=== PATIENT | male | born 1975 | race Caucasian/White ===

== ENCOUNTER → 2023-09-11 | Outpatient (CLI) | payer SELFPAY ==
[2023-09-11 12:11] LABS: Absolute Lymphocyte Count 2.08 X10^3/uL (0.83-4.51); Absolute Neutrophil Count 4.1 X10^3/uL (2.0-7.7); Basophil# 0.08 X10^3/uL; Basophil% 1.2 % (0-1); Eosinophil# 0.17 X10^3/uL; Eosinophils% 2.5 % (0-5); Hematocrit 42.7 % (40-54); Hemoglobin 14.1 g/dL (13.0-16.5); Lymphocyte # 2.08 X10^3/ul (0.83-4.51); Lymphocyte % 30.1 % (19-41); Mean Corpuscular Volume 93.8 fL (80-94); Mean Platelet Vol. 11.1 fl (6.2-12.0); Monocyte# 0.51 X10^3/uL; Monocyte% 7.4 % (0-10); NRBC Flagged by Analyzer 0 % (0-5); Neutrophil # 4.06 X10^3/uL (2.7-7.7); Neutrophil % 58.7 % (47-70); Platelet Count 296 K/mm3 (150-450); RBC Distribution Width CV 12.4 % (11.6-14.6); RBC Distribution Width SD 42.5 fl (35.1-43.9); Red Blood Count 4.55 M/mm3 (4.6-6.2); White Blood Count 6.9 K/mm3 (4.4-11.0)
[2023-09-11 12:41] LABS: AST(SGOT) 24 U/L (15-37); Alanine Aminotransfer ALT/SGPT 31 U/L (16-61); Albumin, Serum 3.8 g/dL (3.2-5.0); Alkaline Phosphatase 58 U/L (45-117); Anion Gap 6 (5-15); BUN 21 mg/dL (7-18); BUN/Creat Ratio 20.8 RATIO (10-20); Calcium,Total 9.1 mg/dL (8.5-10.1); Chloride 107 mmol/L (98-107); Cholesterol 175 mg/dL (200); Creatinine, Serum 1.01 mg/dL (0.70-1.30); EST Glomerular Filtration Rate 84 mL/min (>60); Est Glom Filt Rate - Afr Amer 101 mL/min (>60); Globulin 3.8 g/dL (2.2-4.2); Glucose 89 mg/dL (74-106); High Density Lipoprotein 39 mg/dL; PSA,Total - Annual Screen 6.68 ng/mL (0.00-4.00); Potassium 4.2 mmol/L (3.5-5.1); Protein, Total 7.6 g/dL (6.4-8.2); Sodium Level 137 mmol/L (136-145); Triglycerides 80 mg/dL; Very Low Density Lipoprotein 16 mg/dL (5-40)
== END | disposition home or self-care (01) ==
LOC: BFHLAB 10:56
PROVIDERS: PCP Nurse Practitioner Family; Visit Provider Nurse Practitioner Family
DX: Z00.01 Encounter for general adult medical examination with abnormal findings (principal)
CPT/HCPCS: 36415; 80053; 80061; 84153; 85025; G0103

== ENCOUNTER → 2023-11-27 | Outpatient (CLI) | payer BC, SELFPAY ==
[2023-11-27 18:11] LABS: PSA,Total- Diagnostic 7.29 ng/mL (0.0-4.0)
[2023-11-29 11:08] LABS: PSA, Free 1.07 ng/mL; PSA, Free % 15.2 % (.)
== END | disposition home or self-care (01) ==
PROVIDERS: PCP Nurse Practitioner Family; Referring Provider Urology; Visit Provider Urology
DX: R97.20 Elevated prostate specific antigen [PSA] (principal)
CPT/HCPCS: 36415; 84153; 84154

== ENCOUNTER → 2023-12-19 | Outpatient (CLI) | payer BC, SELFPAY ==
--- NOTE | 2023-12-19 13:34 | MRI_ITS ---
STUDY: MR PROSTATE GLAND/ PELVIS WITH T WITHOUT CONTRAST REASON FOR EXAM: Male, 48 years old. ELEVATED PSA 9.8 TECHNIQUE: Standardized fat and water weighted pulse sequences were obtained in all 3 orthogonal planes, pre-and post contrast administration. IV 20 CC CLARISCAN was administered for the contrast portion of the examination. COMPARISON: None. FINDINGS: Prostate gland volume/size: 5.62 x 4.68 x 5.57 cm which is mildly enlarged. Anterior fibromuscular stroma: Normal Peripheral zone: Normal right peripheral zone. Left peripheral zone = oval intermediate to low signal nodule measuring 1.17 x 0.58 cm is present in the posterior medial aspect of the left peripheral zone see image #16/32 series 8 this nodule demonstrates mild enhancement on the postcontrast study with a small medial component demonstrate bright diffusion weighted signal and dark ADC map signal as seen on images 18/152 series 6 and 21/38 series 601. These findings are suspicious for malignant neoplasm. Central zone: Diffusely heterogeneous and nodular and intermediate to low signal foci intermixed with cystic changes. Features typical of BPH or prostatitis. Transitional zone: Diffusely heterogeneous and nodular and intermediate to low signal foci intermixed with cystic changes. Features typical of BPH or prostatitis. Prostate capsule: Intact Seminal vesicles: Normal bilaterally Pelvic sidewall lymphadenopathy: None present Bony structures: No marrow edema or lytic or blastic lesion or enhancing lesions of the pelvis. Severe disc space narrowing with prominent Modic reactive signal on both sides of the L5-S1 disc space. Anterolisthesis of L5 on S1 of 4 mm. Severe bilateral foraminal stenosis with nerve root compression at this level. Diffuse disc bulge. Normal urinary bladder. Normal visualized small intestine. Normal visualized colon. There is no pelvic fluid. There is no pelvic mass lesion or lymphadenopathy. Normal abdominal wall. Mall bilateral hip joint effusions are present. No inguinal lymphadenopathy or hernias are present. MRI/Pelvis W/WO Contrast IMPRESSION: 1. Left peripheral zone = oval intermediate to low signal nodule measuring 1.17 x 0.58 cm is present in the posterior medial aspect of the left peripheral zone see image #16/32 series 8 this nodule demonstrates mild enhancement on the postcontrast study with a small medial component demonstrate bright diffusion weighted signal and dark ADC map signal as seen on images 18/152 series 6 and 21/38 series 601. These findings are suspicious for malignant neoplasm. 2. PI-RADS 4: high (clinically significant cancer is likely to be present) Reference information: Normal prostate tissue Benign prostatic hypertrophy cancer/tumor - low signal peripheral , transitional, and central zones malignancy appears as bright on DWI and low signal on ADC map Prostate imaging-reporting and data system (PI-RADS) PI-RADS 1: very low (clinically significant cancer is highly unlikely to be present) PI-RADS 2: low (clinically significant cancer is unlikely to be present) PI-RADS 3: intermediate (the presence of clinically significant cancer is equivocal) PI-RADS 4: high (clinically significant cancer is likely to be present) PI-RADS 5: very high (clinically significant cancer is highly likely to be present) PI-RADS X: component of exam technically inadequate or not performed Prostate malignancy distribution: Peripheral zone: 70-80% Transitional zone: 10-20% Central zone: 5% or less Electronically Signed: Anastacio Wu MD at 9:55 EDT Reading Location ID and State: [facility] / [place] , Service support ,
== END | disposition home or self-care (01) ==
PROVIDERS: PCP Nurse Practitioner Family; Referring Provider Urology; Visit Provider Urology
DX: R97.20 Elevated prostate specific antigen [PSA] (principal)
CPT/HCPCS: 72197; A9575

== ENCOUNTER → 2024-02-09 | Outpatient (CLI) | payer BC, SELFPAY ==
--- NOTE | 2024-02-09 13:00 | PROSBIL_PTH ---
PATIENT: LONNY CARRANZA LOC: [facility] U#:[id number] AGE/SX: 48/M ROOM: RE02/09/[address]: Dr. Rupesh Morales MD : 1975 BED: DIS: 02/09/2024 SPEC #: [id number] RECD: 02/10/24 09:47 STATUS: DIDIER REQ #: [id number] MOE: 02/09/24 13:[address]: Rupesh Morales DEPT: SURGICAL PATHOLOGY RECD BY: Ashley Coreas ENTERED: 02/10/24 09:48 SP TYPE: PROST BX GINNY DR: Andra Duke, FLIGHT ATTENDANT/INFLIGHT MANAGER-C Tissues: A - PROSTATE RIGHT B - PROSTATE RIGHT C - PROSTATE RIGHT D - PROSTATE LEFT E - PROSTATE LEFT F - PROSTATE LEFT Procedures: PROSTATE BX HEADER OPERATION: Prostate biopsy PRE-OP DIAGNOSIS: Elevated PSA TISSUE SUBMITTED: A - Right apex, B - Right mid, C - Right base, D - Left apex, E - Left mid, F - Left base MICROSCOPIC DIAGNOSIS A. Right prostate, apex, core biopsy: Prostatic tissue, negative for malignancy. B. Right prostate, mid, core biopsy: Prostatic tissue, negative for malignancy. Focal minimal acute and chronic inflammation. C. Right prostate, base, core biopsy: Prostatic tissue, negative for malignancy. D. Left prostate, apex, core biopsy: Prostatic tissue, negative for malignancy. Focal mild chronic inflammation. E. Left prostate, mid, core biopsy: Prostatic tissue, negative for malignancy. Focal atrophy. F. Left prostate, base, core biopsy: Prostatic tissue, negative for malignancy. Focal minimal acute and chronic inflammation. SJ.mr 02/11/2024 COMMENT Case has been reviewed in consultation with Dr. Chacon who concurs with the above diagnosis. IDC:[email or web address] MICROSCOPIC DESCRIPTION Slides are reviewed. GROSS DESCRIPTION A - Received is one container designated prostate, right apex. The specimen consists of two elongated fragments of light ocampo-white soft tissue measuring 0.5 and 0.7 cm in length and 0.1 cm in diameter. The specimen is totally submitted in one cassette. B - Received is one container designated prostate, right mid. The specimen consists of two elongated fragments of light ocampo-white soft tissue each measuring 1.2 cm in length and 0.1 cm in diameter. The specimen is totally submitted in one cassette. C - Received is one container designated prostate, right base. The specimen consists of two elongated fragments of light ocampo-white soft tissue measuring 0.6 and 2.2 cm in length and 0.1 cm in diameter. The specimen is totally submitted in one cassette. D - Received is one container designated prostate, left apex. The specimen consists of two elongated fragments of light ocampo-white soft tissue measuring 0.5 and 0.9 cm in length and 0.1 cm in diameter. The specimen is totally submitted in one cassette. E - Received is one container designated prostate, left mid. The specimen consists of two elongated fragments of light ocampo-white soft tissue each measuring 0.7 cm in length and 0.1 cm in diameter. The specimen is totally submitted in one cassette. F - Received is one container designated prostate, left base. The specimen consists of two elongated fragments of light ocampo-white soft tissue each measuring 1.1 cm in length and 0.1 cm in diameter. The specimen is totally submitted in one cassette. / SJ.mr 02/10/2024 TC:3 [facility]: [id number] [id number]
--- NOTE | 2024-02-09 13:00 | PROSBIL_PTH ---
PATIENT: LONNY CARRANZA LOC: [facility] U#:[id number] AGE/SX: 48/M ROOM: RE02/09/[address]: Dr. Rupesh Morales MD : 1975 BED: DIS: 02/09/2024 SPEC #: [id number] RECD: 02/10/24 09:47 STATUS: DIDIER REQ #: [id number] MOE: 02/09/24 13:[address]: Rupesh Morales DEPT: SURGICAL PATHOLOGY RECD BY: Ashley Coreas ENTERED: 02/10/24 09:48 SP TYPE: PROST BX GINNY DR: Andra Duke, EMISSIONS TECHNICIAN-C Tissues: A - PROSTATE RIGHT B - PROSTATE RIGHT C - PROSTATE RIGHT D - PROSTATE LEFT E - PROSTATE LEFT F - PROSTATE LEFT Procedures: PROSTATE BX HEADER OPERATION: Prostate biopsy PRE-OP DIAGNOSIS: Elevated PSA TISSUE SUBMITTED: A - Right apex, B - Right mid, C - Right base, D - Left apex, E - Left mid, F - Left base MICROSCOPIC DIAGNOSIS A. Right prostate, apex, core biopsy: Prostatic tissue, negative for malignancy. B. Right prostate, mid, core biopsy: Prostatic tissue, negative for malignancy. Focal minimal acute and chronic inflammation. C. Right prostate, base, core biopsy: Prostatic tissue, negative for malignancy. D. Left prostate, apex, core biopsy: Prostatic tissue, negative for malignancy. Focal mild chronic inflammation. E. Left prostate, mid, core biopsy: Prostatic tissue, negative for malignancy. Focal atrophy. F. Left prostate, base, core biopsy: Prostatic tissue, negative for malignancy. Focal minimal chronic inflammation. 02/11/2024 MICROSCOPIC DESCRIPTION Slides are reviewed. GROSS DESCRIPTION A - Received is one container designated prostate, right apex. The specimen consists of two elongated fragments of light ocampo-white soft tissue measuring 0.5 and 0.7 cm in length and 0.1 cm in diameter. The specimen is totally submitted in one cassette. B - Received is one container designated prostate, right mid. The specimen consists of two elongated fragments of light ocampo-white soft tissue each measuring 1.2 cm in length and 0.1 cm in diameter. The specimen is totally submitted in one cassette. C - Received is one container designated prostate, right base. The specimen consists of two elongated fragments of light ocampo-white soft tissue measuring 0.6 and 2.2 cm in length and 0.1 cm in diameter. The specimen is totally submitted in one cassette. D - Received is one container designated prostate, left apex. The specimen consists of two elongated fragments of light ocampo-white soft tissue measuring 0.5 and 0.9 cm in length and 0.1 cm in diameter. The specimen is totally submitted in one cassette. E - Received is one container designated prostate, left mid. The specimen consists of two elongated fragments of light ocampo-white soft tissue each measuring 0.7 cm in length and 0.1 cm in diameter. The specimen is totally submitted in one cassette. F - Received is one container designated prostate, left base. The specimen consists of two elongated fragments of light ocampo-white soft tissue each measuring 1.1 cm in length and 0.1 cm in diameter. The specimen is totally submitted in one cassette. / KISHA. 02/10/2024 TC:3 CPT: 48738 x6
== END | disposition home or self-care (01) ==
LOC: LABSPEC 16:00
PROVIDERS: PCP Nurse Practitioner Family; Referring Provider Urology; Visit Provider Urology
DX: R97.20 Elevated prostate specific antigen [PSA] (principal)
CPT/HCPCS: 88305; G0416

== ENCOUNTER → 2025-02-02 | Outpatient (CLI) | payer BC, SELFPAY ==
[2025-02-02 10:26] LABS: Hematocrit 42.8 % (40-54); Hemoglobin 15.1 g/dL (13.0-16.5); Immature Granulocytes Count 0.020 X10^3/uL (0.0-0.0); Mean Corp Hgb Conc 35.3 g/dL (32-36); Mean Corpuscular Volume 89.9 fL (80-94); Mean Platelet Vol. 10.5 fl (6.2-12.0); NRBC Flagged by Analyzer 0 % (0-5); Platelet Count 313 K/mm3 (150-450); RBC Distribution Width CV 12.0 % (11.6-14.6); RBC Distribution Width SD 39.5 fl (35.1-43.9); Red Blood Count 4.76 M/mm3 (4.6-6.2); White Blood Count 8.7 K/mm3 (4.4-11.0)
[2025-02-02 11:14] LABS: AST(SGOT) 21 U/L (<=37); Alanine Aminotransfer ALT/SGPT 23 U/L (<=46); Albumin, Serum 4.5 g/dL (3.5-5.0); Alkaline Phosphatase 57 U/L (40-129); Anion Gap 11 (5-15); BUN 18 mg/dL (4-19); BUN/Creat Ratio 19.5 RATIO (10-20); Calcium,Total 9.9 mg/dL (7.6-11.0); Carbon Dioxide 25.8 mmol/L (21.0-32.0); Chloride 102 mmol/L (98-108); Cholesterol 188 mg/dL (<=200); Globulin 3.1 g/dL (2.2-4.2); Glucose 95 mg/dL (70-99); Low Density Lipoprotein Calc. 115 mg/dL; PSA,Total - Annual Screen 7.31 ng/mL (0.02-4.00); Potassium 4.4 mmol/L (3.3-5.1); Triglycerides 148 mg/dL; Very Low Density Lipoprotein 30 mg/dL (5-40); cholesterol:hdl ratio screen 4.37
== END | disposition home or self-care (01) ==
LOC: MTLAB 07:06
PROVIDERS: PCP Nurse Practitioner Family; Referring Provider Nurse Practitioner Family; Visit Provider Nurse Practitioner Family
DX: Z00.01 Encounter for general adult medical examination with abnormal findings (principal); Z12.5 Encounter for screening for malignant neoplasm of prostate
CPT/HCPCS: 36415; 80053; 80061; 84153; 85025; G0103